=== PATIENT | male | born 1970 | race Caucasian/White ===

== ENCOUNTER 2017-06-10 19:24 | Inpatient (IN) ==
--- NOTE | 2017-06-10 19:52 | Emergency Department Note ---
Disposition Clinical Impression: Cerebrovascular accident Qualifiers: CVA mechanism: unspecified Qualified Code(s): I63.9 - Cerebral infarction, unspecified Disposition: Admitted As Inpatient Condition: Undetermined Referrals: Adelaide Fallon CNP [Primary Care Provider] - Forms: ED Satisfaction Letter Time of Disposition: 21:56 Neuro HPI - General Chief Complaint: ED Neuro Symptoms/Deficit Stated Complaint: weakness in R hand, headache Time Seen by Provider: 06/10/17 19:41 Source: patient Mode of arrival: ambulatory Limitations: no limitations Nursing Notes Reviewed: Yes Vital Signs Reviewed: Yes - History of Present Illness HPI Narrative: 47-year-old male with history of hypertension, hyperlipidemia, diabetes arrives to [facility] emergency department with right upper extremity and numbness and weakness that began roughly 36 hours ago. The patient states he never experienced like this in the past. The patient states that when the symptoms started he began experiencing also right lower extremity weakness that has since resolved. The patient went to work and is continued to his normal routine despite this. The patient's decided to bring the patient in for evaluation today. The patient denies any other complaints at this time. He is resting comfortably in the room with a definitive right upper extremity weakness in his hand. So complaining of a headache. Denies any other complaints. Onset of Symptoms Date: 06/09/17 Onset of Symptoms Time: 08:00 Symptom Onset Unknown: No Location: right arm History of same: No Severity: mild Quality: weakness, numbness Symptoms Improving: No Improves with: none Worsens with: none Context: sudden onset On Anticoagulants: No Associated symptoms: Reports: denies other symptoms - Related Data Home Medications: Home Medications Medication Instructions Recorded Confirmed Gabapentin [Neurontin] 600 mg PO HS 06/10/17 06/10/17 Lisinopril [Zestril] 40 mg PO DAILY 06/10/17 06/10/17 Metoprolol [Lopressor] 25 mg PO BID 06/10/17 06/10/17 Pravastatin Sodium [Pravachol] 40 mg PO HS 06/10/17 06/10/17 hydroCHLOROthiazide 25 mg PO DAILY 06/10/17 06/10/17 [Hydrochlorothiazide] metFORMIN [Glucophage] 1,000 mg PO BIDWM 06/10/17 06/10/17 Allergies/Adverse Reactions: Allergies Allergy/AdvReac Type Severity Reaction Status Date / Time Penicillins Allergy Swelling Verified 12/28/16 20:23 of Lip/Tongue/Throat All systems ED: reviewed and negative except as stated. Constitutional: Reports: weakness. Denies: fever, chills Cardiovascular: Denies: chest pain, dyspnea on exertion Respiratory: Denies: cough, dyspnea, wheezes Gastrointestinal: Denies: abdominal pain, nausea, vomiting Genitourinary: Denies: urgency, dysuria, frequency Musculoskeletal: Denies: back pain, neck pain Neurological: Reports: headache, weakness, numbness. Denies: confusion Psychiatric: Denies: anxiety, depression, suicidal thoughts, homicidal thoughts , auditory hallucinations, visual hallucinations Past Medical History - Past Medical History Attestation: Yes The following information was validated with the patient. Source: patient Medical history: Reports: diabetes, hyperlipidemia, hypertension Surgical history: Reports: non-contributory Psychiatric history: Reports: no psych history - Social History Smoking Status: Current some day smoker Smokeless Tobacco Status: No Alcohol use: Reports: occasionally Drug use: Reports: none Physical Exam - General Limitations: no limitations General appearance: alert, in no apparent distress - Head Head exam: atraumatic, normocephalic, normal inspection - Eye Eye exam: Present: normal appearance, PERRL, EOMI - ENT ENT exam: normal exam, normal oropharynx, mucous membranes moist - Neck Neck exam: Present: normal inspection, full ROM, trachea midline - Chest Chest inspection: Present: normal inspection, symmetric chest wall rise - Respiratory Respiratory exam: Present: normal lung sounds bilaterally - Cardiovascular Cardiovascular exam: Present: regular rate, normal rhythm, normal heart sounds - Abdominal Exam Abdominal exam: Present: soft, Non-Tender. Absent: tenderness, distention, guarding, rebound, rigidity - Extremities Exam Extremities exam: Present: normal inspection, full ROM. 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) Motor strength - LLE: 5/5 Motor strength - RLE: 5/5 Sensory exam upper extremity: light touch: Normal Sensory exam lower extremity: light touch: Normal Course Vital Signs Temperature 98.3 F 06/10/17 19:26 Pulse Rate 90 06/10/17 19:26 Respiratory Rate 16 06/10/17 19:26 Blood Pressure 141/100 06/10/17 19:26 O2 Sat by Pulse Oximetry 95 06/10/17 19:26 Temperature 98.3 F 06/10/17 19:26 Pulse Rate 80 06/10/17 21:03 Respiratory Rate 16 06/10/17 21:03 Blood Pressure 124/78 06/10/17 21:03 O2 Sat by Pulse Oximetry 97 06/10/17 21:03 Oxygen Delivery Oxygen Delivery Room Air Neuro Symptoms/Deficit - MDM Narrative Medical decision making narrative: Patient has workup to demonstrate no acute process here in the emergency department. We will admit the patient for further workup and care with concern for TIA versus CVA. 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 No other deficits noted. Technically the patient has an NIH of 0 due to no drift. Patient to be admitted by Dr. Jackson. - Lab Data Lab results reviewed: Yes I reviewed the patient's lab results. Result diagrams: 06/10/17 20:35 06/10/17 20:35 Lab Results 06/10/17 06/10/17 06/10/17 Range/Units 19:56 20:10 20:12 WBC (4.3-11.1) K/mcL RBC (4.19-5.50) M/mcL Hgb (12.9-16.9) g/dL Hct (37.5-50.1) % MCV (83.0-100.0) fL MCH (28.0-33.3) pg MCHC (31.6-35.5) g/dL RDW (11.5-14.5) % Plt Count (140-400) K/mcL MPV (9.4-12.4) fL Immature Gran % (0-4) % Seg Neutrophils % % Lymphocytes % % Monocytes % % Eosinophils % % Basophils % % Neutrophils # (1.6-8.9) K/mcL Lymphocytes # (0.6-4.6) K/mcL Monocytes # (0.0-1.3) K/mcL Eosinophils # (0.0-0.6) K/mcL Basophils # (0.0-0.2) K/mcL PT (9.4-12.1) Seconds INR APTT (26.0-36.0) Seconds Sodium (136-145) mEq/L Potassium (3.5-4.5) mEq/L Chloride (98-109) mEq/L Carbon Dioxide (19-29) mEq/L BUN (8-26) mg/dL Creatinine (0.72-1.25) mg/dL Est GFR ( Amer) (> 60) Est GFR (Non-Af Amer) (> 60) BUN/Creatinine Ratio (6-26) Glucose (70-99) mg/dL POC Glucose 191 H 184 H (58-89) Calculated Osmolality (280-300) Calcium (8.6-10.8) mg/dL Creatine Kinase (30-200) Units/L Troponin I (0-0.03) ng/mL Urine Color Yellow (Yellow) Urine Clarity Clear (Clear) Urine pH 6.0 (5.0-8.0) pH Units Ur Specific [place] 1.006 L (1.010-1.025) Urine Protein Negative (Neg-Trace) mg/dL Urine Glucose (UA) Normal (Normal) mg/dL Urine Ketones Negative (Negative) mg/dL Urine Blood Negative (Negative) Urine Nitrite Negative (Negative) Urine Bilirubin Negative (Negative) Urine Urobilinogen Normal (Normal) mg/dL Ur Leukocyte Esterase Negative (Negative) Ur Culture Indicated? NO (NO) 06/10/17 06/10/17 06/10/17 Range/Units 20:35 20:35 20:35 WBC 14.5 H (4.3-11.1) K/mcL RBC 5.28 (4.19-5.50) M/mcL Hgb 14.3 (12.9-16.9) g/dL Hct 43.3 (37.5-50.1) % MCV 82.0 L (83.0-100.0) fL MCH 27.1 L (28.0-33.3) pg MCHC 33.0 (31.6-35.5) g/dL RDW 13.0 (11.5-14.5) % Plt Count 344 (140-400) K/mcL MPV 10.3 (9.4-12.4) fL Immature Gran % 0.8 (0-4) % Seg Neutrophils % 58.9 % Lymphocytes % 25.2 % Monocytes % 7.4 % Eosinophils % 6.7 % Basophils % 1.0 % Neutrophils # 8.6 (1.6-8.9) K/mcL Lymphocytes # 3.7 (0.6-4.6) K/mcL Monocytes # 1.1 (0.0-1.3) K/mcL Eosinophils # 1.0 H (0.0-0.6) K/mcL Basophils # 0.1 (0.0-0.2) K/mcL PT (9.4-12.1) Seconds INR APTT (26.0-36.0) Seconds Sodium 136 (136-145) mEq/L Potassium 3.3 L (3.5-4.5) mEq/L Chloride 98 (98-109) mEq/L Carbon Dioxide 24 (19-29) mEq/L BUN 11 (8-26) mg/dL Creatinine 1.03 (0.72-1.25) mg/dL Est GFR ( Amer) > 60 (> 60) Est GFR (Non-Af Amer) > 60 (> 60) BUN/Creatinine Ratio 11 (6-26) Glucose 178 H (70-99) mg/dL POC Glucose (58-89) Calculated Osmolality 286 (280-300) Calcium 9.5 (8.6-10.8) mg/dL Creatine Kinase (30-200) Units/L Troponin I 0.00 (0-0.03) ng/mL Urine Color (Yellow) Urine Clarity (Clear) Urine pH (5.0-8.0) pH Units Ur Specific [place] (1.010-1.025) Urine Protein (Neg-Trace) mg/dL Urine Glucose (UA) (Normal) mg/dL Urine Ketones (Negative) mg/dL Urine Blood (Negative) Urine Nitrite (Negative) Urine Bilirubin (Negative) Urine Urobilinogen (Normal) mg/dL Ur Leukocyte Esterase (Negative) Ur Culture Indicated? (NO) 06/10/17 06/10/17 Range/Units 20:35 20:35 WBC (4.3-11.1) K/mcL RBC (4.19-5.50) M/mcL Hgb (12.9-16.9) g/dL Hct (37.5-50.1) % MCV (83.0-100.0) fL MCH (28.0-33.3) pg MCHC (31.6-35.5) g/dL RDW (11.5-14.5) % Plt Count (140-400) K/mcL MPV (9.4-12.4) fL Immature Gran % (0-4) % Seg Neutrophils % % Lymphocytes % % Monocytes % % Eosinophils % % Basophils % % Neutrophils # (1.6-8.9) K/mcL Lymphocytes # (0.6-4.6) K/mcL Monocytes # (0.0-1.3) K/mcL Eosinophils # (0.0-0.6) K/mcL Basophils # (0.0-0.2) K/mcL PT 11.8 (9.4-12.1) Seconds INR 1.1 APTT 30.6 (26.0-36.0) Seconds Sodium (136-145) mEq/L Potassium (3.5-4.5) mEq/L Chloride (98-109) mEq/L Carbon Dioxide (19-29) mEq/L BUN (8-26) mg/dL Creatinine (0.72-1.25) mg/dL Est GFR ( Amer) (> 60) Est GFR (Non-Af Amer) (> 60) BUN/Creatinine Ratio (6-26) Glucose (70-99) mg/dL POC Glucose (58-89) Calculated Osmolality (280-300) Calcium (8.6-10.8) mg/dL Creatine Kinase 49 (30-200) Units/L Troponin I (0-0.03) ng/mL Urine Color (Yellow) Urine Clarity (Clear) Urine pH (5.0-8.0) pH Units Ur Specific [place] (1.010-1.025) Urine Protein (Neg-Trace) mg/dL Urine Glucose (UA) (Normal) mg/dL Urine Ketones (Negative) mg/dL Urine Blood (Negative) Urine Nitrite (Negative) Urine Bilirubin (Negative) Urine Urobilinogen (Normal) mg/dL Ur Leukocyte Esterase (Negative) Ur Culture Indicated? (NO) - Radiology Data Radiology results reviewed: Yes I reviewed the patient's radiology results. - EKG Data EKG attestation: Yes I reviewed and interpreted this EKG. EKG results narrative: Heart rate 74 bpm. MN interval 176 ms. QTC 39 ms. Normal axis. Normal sinus rhythm. No ST elevation or ST depression noted. EKG similar appearance to EKG from 04/16/2009. NIH Stroke Scale - Level of Consciousness LOC: Alert - LOC Questions LOC Questions: Answers both correctly - LOC Commands LOC Commands: Performs both correctly - Best Gaze Best Gaze: Normal - Visual Visual: No visual loss - Facial Palsy Facial Palsy: Normal - Motor Arms Motor Arm-Left: No drift for 10 seconds Motor Arm-Right: No drift for 10 seconds - Motor Legs Motor Leg-Left: No drift for 5 seconds Motor Leg-Right: No drift for 5 seconds - Limb Ataxia Limb Ataxia: Normal, No Ataxia - Sensory Sensory: Normal - Best Language Best Language: No aphasia - Dysarthria Dysarthria: Normal - Extinction and Inattention Extinction and Inattention: Normal - NIHSS Total Score NIHSS Total Score: 0 TPA Checklist - LKW: 3-4.5 hrs Add. Warnings/Precautions Patient/family understanding: The patient/family members have been counseled and understood the risk, benefit , and alternatives of treatment. Attestation Statement - Attestation Attestation: I examined this patient and my medical decision-making was reviewed with the Resident Physician. I agree with the documented findings, disposition and treatment plan as described except to the extent set forth below. Patient to the ED with a chief complaint of right hand weakness. Onset over 24 hours ago. 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 It was accompanied by weakness in his right leg. The leg weakness resolved but it persisted in his hand. Now has a mild headache. Awake and alert and neurologically intact. 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 Plan. CT head unremarkable. He will be admitted for further stroke workup.
[2017-06-10 20:23] LABS: Bilirubin,Urine Negative (Negative); Blood,Urine Negative (Negative); Clarity,Urine Clear (Clear); Color,Urine Yellow (Yellow); Glucose,Urine (UA) Normal (Normal); Ketones,Urine Negative (Negative); Leukocyte Esterase,Urine Negative (Negative); Nitrite,Urine Negative (Negative); Protein,Urine Negative (Neg-Trace); Specific Gravity,Urine 1.006 (1.010-1.025); Urobilinogen,Urine Normal (Normal)
[2017-06-10 20:44] LABS: Basophils # 0.1 K/mcL (0.0-0.2); Eosinophils % 6.7 %; Hematocrit 43.3 % (37.5-50.1); Hemoglobin 14.3 g/dL (12.9-16.9); Immature Granulocytes % 0.8 % (0-4); Lymphocytes # 3.7 K/mcL (0.6-4.6); Lymphocytes % 25.2 %; Mean Corpuscular Hemoglobin 27.1 pg (28.0-33.3); Mean Platelet Volume 10.3 fL (9.4-12.4); Monocytes # 1.1 K/mcL (0.0-1.3); Monocytes % 7.4 %; Neutrophils # 8.6 K/mcL (1.6-8.9); Platelet Count 344 K/mcL (140-400); Red Blood Count 5.28 M/mcL (4.19-5.50); Segmented Neutrophils % 58.9 %
[2017-06-10 20:49] LABS: INR 1.1; Prothrombin Time 11.8 Seconds (9.4-12.1)
[2017-06-10 20:51] LABS: Activated Partial Thrombo Time 30.6 Seconds (26.0-36.0)
[2017-06-10 20:57] LABS: BUN/Creatinine Ratio 11 (6-26); Blood Urea Nitrogen 11 mg/dL (8-26); Calcium 9.5 mg/dL (8.6-10.8); Carbon Dioxide 24 mEq/L (19-29); Chloride 98 mEq/L (98-109); Glucose 178 mg/dL (70-99); Osmolality,Calculated 286 (280-300); Potassium 3.3 mEq/L (3.5-4.5); Sodium 136 mEq/L (136-145); eGFR For African Americans > 60 (> 60); eGFR For Non-African Americans > 60 (> 60)
[2017-06-10] MEDS ORDERED: *HR* Promethazine 25 MG/ML VIAL IVP PRN (22:52)
[2017-06-10] MEDS ORDERED: Ondansetron 4 MG/2 ML VIAL IVP PRN (22:52)
[2017-06-10] MEDS ORDERED: *HR* Morphine 2 MG/ML SYRINGE IVP PRN (22:52)
[2017-06-10] MEDS ORDERED: *HR* HYDROcodone/Acet 5/325 mg TABLET PO PRN (22:52)
[2017-06-10] MEDS ORDERED: Acetaminophen 325 MG TABLET PO PRN (22:52)
[2017-06-10] MEDS ORDERED: Naloxone 0.4 MG/ML INJ IVP PRN (22:52)
--- NOTE | 2017-06-10 23:03 | Internal Med History&Physical ---
Date of Encounter: 06/10/17 Time of Encounter: 10:15 Assessment and Plan (1) Cerebrovascular accident Current visit: Yes Status: Acute He does have noticeble weakness in Rt UE Not a cnadidate for tPA due to prolonge duration of symptoms will placed the pt into tele for observation reviewed CT of head - no acute ICH EKG - NSR Will cont neuro checks Q4hr Since pt is ASA naive, will start him on ASA 81mg Cont Pravastatin home meds check FLP in AM Check MRI of brain, Carotid doppler and 2 D Echo in AM Will consult neuro in AM PT / OT eval ordered If MRI of Brain is negative - he may need further work up for Cervical spinal stenosis Qualifiers: CVA mechanism: unspecified Qualified Code(s): I63.9 - Cerebral infarction, unspecified (2) Right arm weakness Current visit: Yes Status: Acute PT / OT eval ordered If MRI of Brain is negative - he may need further work up for Cervical spinal stenosis (3) Essential hypertension Current visit: Yes Status: Acute Resumed home meds (4) DM2 (diabetes mellitus, type 2) Current visit: Yes Status: Acute resumed home meds check hbA1C in AM Qualifiers: Qualified Code(s): E11.9 - Type 2 diabetes mellitus without complications (5) HLD (hyperlipidemia) Current visit: Yes Status: Acute on statin checl FLP in AM Qualifiers: Qualified Code(s): E78.5 - Hyperlipidemia, unspecified Internal Medicine - H&P: HPI Chief complaint: Rt arm weakness Admitted From: Emergency Dept Plans for Post Hospital Care: Home History of present illness: Mr. Rai is a 47 year old male with known DM2, HTN, HLD pt presented to [facility] emergency department with right upper extremity numbness and weakness that began roughly 36 hours ago. The patient states he never experienced like this in the past. The patient states that when the symptoms started he began experiencing also right lower extremity weakness that has since resolved. The patient went to work and is continued to his normal routine despite this. The patient's decided to bring the patient in for evaluation today. 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 He did complained of headache y/d. Denies any other complaints. he denied any neck pain. Past Med Surg Social Fam HX - Past Medical History Medical history: diabetes, hyperlipidemia, hypertension Psychiatric history: no psych history - Past Surgical History Surgical History: non-contributory - Social History Smoking Status: Current some day smoker Smokeless Tobacco Status: No Alcohol use: occasionally Drug use: none - Additional Family History Additional family history: Reviewed and noncontributory to current problem Internal Medicine - H&P: Meds Gabapentin [Neurontin] 600 mg PO HS 06/10/17 [History] Lisinopril [Zestril] 40 mg PO DAILY 06/10/17 [History] Metoprolol [Lopressor] 25 mg PO BID 06/10/17 [History] Pravastatin Sodium [Pravachol] 40 mg PO HS 06/10/17 [History] hydroCHLOROthiazide [Hydrochlorothiazide] 25 mg PO DAILY 06/10/17 [History] metFORMIN [Glucophage] 1,000 mg PO BIDWM 06/10/17 [History] 3 Allergy/AdvReac Type Severity Reaction Status Date / Time Penicillins Allergy Swelling Verified 12/28/16 20:23 of Lip/Tongue/Throat All Systems PM: A 10-system review of systems was performed and is negative for pertinent findings except as documented above in the HPI. Review of systems: All the systems are reviewed everything is benign except the systems and symptoms I mentioned in the history of present illness - Constitutional Vitals: Temp Pulse Resp BP Pulse Ox 98.2 F 80 16 116/74 97 06/10/17 22:42 06/10/17 21:03 06/10/17 22:42 06/10/17 22:42 06/10/17 21:03 General appearance: Present: A&O X 3, no acute distress, answers questions appropriately - Head Head exam: Present: atraumatic, normal inspection - Respiratory Respiratory exam: Present: decreased breath sounds. Absent: rales, respiratory distress, rhonchi, wheezes - Cardiovascular Cardiovascular exam: Present: RRR, +S1, +S2. Absent: systolic murmur - GI/Abdominal GI/Abdominal exam: Present: normal bowel sounds, soft. Absent: distended, rebound, rigid, tenderness - Extremities Exam Extremities exam: Absent: calf tenderness, pedal edema, tenderness - Neurological Exam Neurological exam: Present: alert, CN II-XII intact, motor sensory deficit, normal gait, oriented X3, reflexes normal. Absent: strengths equal and symetr throughout, pronater drift, facial droop, speech deficit Additional comments: 4/5 strength in Rt UE.. comparable weakness noticed in Rt arm - Psychiatric Psychiatric exam: Present: normal affect, normal mood Internal Med - H&P Results - Labs CBC & Chem 7: 06/10/17 20:35 06/10/17 20:35
[2017-06-11] MEDS: Aspirin Enteric Coated 81 MG Tablet PO SCH ×2 (01:17→08:14)
[2017-06-11 05:04] LABS: Basophils # 0.2 K/mcL (0.0-0.2); Basophils % 1.2 %; Eosinophils # 0.9 K/mcL (0.0-0.6); Eosinophils % 7.5 %; Hematocrit 41.8 % (37.5-50.1); Immature Granulocytes % 0.8 % (0-4); Lymphocytes # 3.2 K/mcL (0.6-4.6); Lymphocytes % 25.3 %; Mean Corpuscular HGB Conc 33.5 g/dL (31.6-35.5); Mean Corpuscular Hemoglobin 27.9 pg (28.0-33.3); Mean Corpuscular Volume 83.4 fL (83.0-100.0); Mean Platelet Volume 10.6 fL (9.4-12.4); Monocytes # 0.9 K/mcL (0.0-1.3); Monocytes % 7.4 %; Neutrophils # 7.2 K/mcL (1.6-8.9); Platelet Count 297 K/mcL (140-400); Red Blood Count 5.01 M/mcL (4.19-5.50); Red Cell Distribution Width 13.3 % (11.5-14.5); Segmented Neutrophils % 57.8 %
[2017-06-11 05:13] LABS: Hemoglobin A1C 8.3 %
[2017-06-11 05:20] LABS: Chol/HDL Ratio 5.2 (0-4.9)
[2017-06-11] MEDS ORDERED: *HR* Metformin 500 MG TABLET PO SCH (08:00)
[2017-06-11] MEDS: Lisinopril 20 MG TABLET PO SCH (08:13)
[2017-06-11] MEDS: hydroCHLOROthiazide 25 MG TABLET PO SCH (08:13)
[2017-06-11] MEDS ORDERED: Perflutren Lipid Microsphere 1.3 ML in 0.9 % Sodium Chloride 8.7 ML IVP ONE (09:28)
[2017-06-11] MEDS ORDERED: D5% in Water 1,000 ML IVC PRN (12:13)
[2017-06-11] MEDS ORDERED: *HR* Dextrose 50 % in Water (Syg) 50 ML SYRINGE IVP PRN (12:13)
[2017-06-11] MEDS ORDERED: Dextrose Gel 15 GM PO PRN ×2 (12:13)
--- NOTE | 2017-06-11 12:32 | Internal Med Progress Note ---
Date of Encounter: 06/11/17 Time of Encounter: 11:52 - Assessment and plan (1) Right arm weakness Current Visit: Yes Status: Acute Assessment and plan: Hilario Rai is a 47 y/o male with PMH HTN, diabetes, and hyperlipidemia who presented to [facility] on 06/10/2017 with complaints of right arm weakness. He was placed in observation status for CVA rule out. 1. Right arm weakness: that started 2-3 days prior to presentation. Not a Tpa candidate due to symptom onset. ASA started on arrival. Head CT negative. TTE with evidence of PFO. Brain MRI and carotids pending. Cont ASA, statin 2. PFO: 06/11/2017 TTE with evidence of interatrial PFO. Await brain MRI result. If positive for stroke then consult CTS if no stroke then consult Cardiology . 3. Hypertension: per hx. BP controlled. Cont home PATRICIA medication. Monitor BP and titrate PRN 4. Diabetes: per hx. Uncontrolled. Hgb A1c 8.3. Holding home metformin. SSI. Monitor blood sugar and titrate PRN 5. Hyperlipidemia: per hx. LDL 50, cont home statin 6. DVT prophylaxis: heparin (2) Essential hypertension Current Visit: Yes Status: Acute (3) DM2 (diabetes mellitus, type 2) Current Visit: Yes Status: Acute Qualifiers: Qualified Code(s): E11.9 - Type 2 diabetes mellitus without complications (4) HLD (hyperlipidemia) Current Visit: Yes Status: Acute Qualifiers: Qualified Code(s): E78.5 - Hyperlipidemia, unspecified - Subjective Interval history: Seen and examined at bedside, he is new to me. Information obtained from chart review and patient report. Patient says he feels about the same, still with right arm weakness. No numbness or tingling. No blurred or double vision. No chest pain or shortness of breath. - Constitutional Vitals: Temp Pulse Resp BP Pulse Ox 98.1 F 69 20 129/77 94 06/11/17 11:47 06/11/17 11:47 06/11/17 07:29 06/11/17 11:47 06/11/17 11:47 General appearance: Present: A&O X 3, no acute distress, answers questions appropriately - Head Head exam: Present: atraumatic, normocephalic - Eye Eye exam: Present: PERRL, conjuntiva pink, sclera anicteric Pupils: Present: PERRL - Neck Neck exam general surgery: Present: supple, trachea midline. Absent: lymphadenopathy - Respiratory Respiratory exam: Present: CTAB. Absent: accessory muscle use, rales, rhonchi, wheezes - Cardiovascular Cardiovascular exam: Present: RRR, +S1, +S2. Absent: diastolic murmur, gallop, rubs, systolic murmur - GI/Abdominal GI/Abdominal exam: Present: normal bowel sounds, soft, no peritoneal signs. Absent: distended, tenderness - Extremities Exam Extremities exam: Present: warm, radial pulses palpable and symmetrical. Absent : calf tenderness, cyanotic, pedal edema - Neurological Exam Neurological exam: Present: CN II-XII intact, oriented X3, no focal deficits. Absent: pronater drift, facial droop, speech deficit Additional comments: right arm weakness - Skin Skin exam: Present: dry, intact Internal Medicine: Result - Labs CBC & Chem 7: 06/11/17 04:21 06/10/17 20:35 Labs: Short CBC 06/11/17 Range/Units 04:21 WBC 12.5 H (4.3-11.1) K/mcL Hgb 14.0 (12.9-16.9) g/dL Hct 41.8 (37.5-50.1) % Plt Count 297 (140-400) K/mcL Neutrophils # 7.2 (1.6-8.9) K/mcL Cardiac Enzymes 06/11/17 Range/Units 04:21 Troponin I 0.00 (0-0.03) ng/mL - ABG Interpretation ABG results: PT/INR, D-dimer PT 11.8 Seconds (9.4-12.1) 06/10/17 20:35 - Impressions Impressions Echocardiogram 06/11/17 22:58 Impressions: Normal LV systolic function, LVEF 65%. Normal left ventricular diastolic function. Normal right ventricular size and function. No evidence of pulmonary hypertension. No significant valvular dysfunction. There is a patent foramen ovale (PFO) detected by agitated saline contrast. Left Ventricular Wall Motion: Rest Echo Findings All wall segments showed normal motion. Findings: Study Quality * Technically adequate exam. ECG Findings * Normal sinus rhythm. Left Ventricle * Normal LV systolic function, LVEF 65%. * Normal LV chamber size and wall thickness. * Normal left ventricular diastolic function. Right Ventricle * Normal right ventricular size and function. Left Atrium * Normal left atrial size. Right Atrium * Normal right atrial size. Interatrial Septum * There is a patent foramen ovale (PFO) detected by agitated saline contrast. Aorta * Normally sized aortic root. Pericardium * There is no pericardial effusion present. IVC * The IVC is not dilated. Aortic Valve * Trileaflet aortic valve. * No aortic stenosis. * No aortic regurgitation. Mitral Valve * Normal mitral valve structure. * No mitral stenosis. * Trace mitral regurgitation. Tricuspid Valve * Normal tricuspid valve structure. * No tricuspid stenosis. * Trace tricuspid regurgitation. * No evidence of pulmonary hypertension. Pulmonic Valve * Pulmonic valve not well visualized. * No pulmonic stenosis. * No pulmonic regurgitation. Consult Discharge Plan - Plan Referrals: Adelaide Fallon, [facility] [Primary Care Provider] -
[2017-06-11] MEDS: *HR* Heparin 5,000 UNIT/ML VIAL SQ SCH ×2 (13:39→21:40)
--- NOTE | 2017-06-11 15:16 | Carotid Imaging Report ---
Carotid Duplex Patient Name:Hilario Rai Order Number:[id number] Procedure Date:06/11/2017 Date:1970Age:47 yrs Gender:Male Location:[facility] Room #: 3B23 Online Trader:Karin Hernandes Referring MD:Tim William MD Reading MD:Hilario Stahl MD Risk Factors Yes/No Hypertension Yes Diabetes Yes Hypercholesterolemia Yes Smoking Current cigars Impressions: The bilateral carotid arteries are normal throughout. Recommendations: After imaging the patient returned to their room. Findings Carotid Duplex: Right: The right proximal common carotid artery has a PSV of 101 cm/s and a EDV of 25 cm/s. The right mid common carotid artery has a PSV of 80 cm/s and a EDV of 21 cm/s. The right distal common carotid artery has a PSV of 92 cm/s and a EDV of 27 cm/s. The right bifurcation has a PSV of 78 cm/s and a EDV of 26 cm/s. The right proximal internal carotid artery has a PSV of 88 cm/s and a EDV of 33 cm/s. The right mid internal carotid artery has a PSV of 86 cm/s and a EDV of 38 cm/s. The right distal internal carotid artery has a PSV of 71 cm/s and a EDV of 30 cm/s. The right eca has a PSV of 111 cm/s and a EDV of 15 cm/s. The right vertebral artery has a PSV of 41 cm/s and a EDV of 18 cm/s. Left: The left proximal common carotid artery has a PSV of 83 cm/s and a EDV of 19 cm/s. The left mid common carotid artery has a PSV of 109 cm/s and a EDV of 30 cm/s. The left distal common carotid artery has a PSV of 82 cm/s and a EDV of 30 cm/s. The left bifurcation has a PSV of 78 cm/s and a EDV of 24 cm/s. The left proximal internal carotid artery has a PSV of 72 cm/s and a EDV of 36 cm/s. The left mid internal carotid artery has a PSV of 74 cm/s and a EDV of 29 cm/s. The left distal internal carotid artery has a PSV of 52 cm/s and a EDV of 23 cm/s. The left eca has a PSV of 88 cm/s and a EDV of 12 cm/s. The left vertebral artery has a PSV of 46 cm/s and a EDV of 17 cm/s. Carotid Results Right PSV EDV Assessment Proximal CCA 101 25 Normal Mid CCA 80 21 Normal Distal CCA 92 27 Normal Bifurcation 78 26 Normal Proximal ICA 88 33 Normal Mid ICA 86 38 Normal Distal ICA 71 30 Normal ECA 111 15 Normal Vertebral Artery 41 18 Normal Left PSV EDV Assessment Proximal CCA 83 19 Normal Mid CCA 109 30 Normal Distal CCA 82 30 Normal Bifurcation 78 24 Normal Proximal ICA 72 36 Normal Mid ICA 74 29 Normal Distal ICA 52 23 Normal ECA 88 12 Normal Vertebral Artery 46 17 Normal Ratio's Right ICA/CCA Ratio: 1.10 ICA/CCA Values: 86/80 Left ICA/CCA Ratio: 0.70 ICA/CCA Values: 74/109 Updated by Hilario Stahl MD on 06/11/2017 3:10:30 PM electronically signed on 06/11/2017 3:10:59 PM with status of Final
[2017-06-11] MEDS: Insulin LISPRO 300 UNITS/3 ML VIAL SQ SCH ×2 (18:11→21:41)
--- NOTE | 2017-06-11 18:17 | Neurology - Consult Note ---
Date of Encounter: 06/11/17 Time of Encounter: 18:12 Assessment and Plan (1) Cerebrovascular accident Current Visit: Yes Status: Acute Involving the left frontal cortex and subcortial region concerning for emboli event. Does have other multiple risk factors including HTN, DM and JESU, and obesity. Agree with Aspirin 81mg daily. Statin therapy. Will recommend HOLLIE to look for source of emboli other than through PFO since this appears to be an embolic stroke in young. Has evidence of PFO. Since this is his first incidence of stroke will likely keep him on antiplatelet therapy. Would need cardiology consult for evaluation and treatment PFO. Qualifiers: CVA mechanism: embolism Precerebral and cerebral artery: middle cerebral artery Laterality of affected vessel: left Qualified Code(s): I63.412 - Cerebral infarction due to embolism of left middle cerebral artery History of Present Illness Chief complaint: right arm weakness HPI: Mr. Rai is a 47 year old male with PMH significant for HTN, DM, Obesity, hyperlipidemia, JESU on CPAP who developed acute onset of right arm weakness, about 2 days ago. He waited 36 hours before going to ER to be evaluated since his weakness was not getting better. Denies speech difficulty. No headaches. MRI of brain showed MR/MR head/brain : Acute lacunar infarct within the high left frontal lobe. I reviewed the images personally, it appears that the acute infarct was located at the left frontal cortex and subcortical region, concerning for embolic etiology. Patient's right arm weakness improved. Denies history of atrial fibrillation. Does have HTN, DM, obesity and JESU and has been compliant with CPAP therapy. Patient is on aspirin 81mg daily. Carotid artery duplex study is read as normal. TTE showed normal LVEF, no regional wall motion abnormalities. positive for PFO. No significant valcular disease. Past Med Surg Social Fam HX - Past Medical History Medical history: diabetes, hyperlipidemia, hypertension Psychiatric history: no psych history - Past Surgical History Surgical History: non-contributory - Social History Smoking Status: Current some day smoker Smokeless Tobacco Status: No Alcohol use: occasionally Drug use: none - Family History Mother Hx Family Cardiac Disorders: Yes (HTN) Medications and Allergies Gabapentin [Neurontin] 600 mg PO HS 06/10/17 [History] Lisinopril [Zestril] 40 mg PO DAILY 06/10/17 [History] Metoprolol [Lopressor] 25 mg PO BID 06/10/17 [History] Pravastatin Sodium [Pravachol] 40 mg PO HS 06/10/17 [History] hydroCHLOROthiazide [Hydrochlorothiazide] 25 mg PO DAILY 06/10/17 [History] metFORMIN [Glucophage] 1,000 mg PO BIDWM 06/10/17 [History] 3 Allergy/AdvReac Type Severity Reaction Status Date / Time Penicillins Allergy Swelling Verified 12/28/16 20:23 of Lip/Tongue/Throat All Systems: A 10-system review of systems was performed and is negative for pertinent findings except as documented above in the HPI. Physical Examination - Vital Signs Vital Signs: Initial Vital Signs Temp Pulse Resp BP Pulse Ox 98.3 F 90 16 141/100 95 06/10/17 19:26 06/10/17 19:26 06/10/17 19:26 06/10/17 19:26 06/10/17 19:26 - Constitutional General appearance: comfortable - Neurologic Detailed motor examination: full strength in all major muscle groups Motor examination - right side: 5/5: deltoids, biceps, triceps, wrist flexion, wrist extension, respooler, hip flexors, tibialis Anterior, quadriceps, toe extension (EHL), plantarflexion Motor examination - left side: 5/5: deltoids, biceps, triceps, wrist flexion, wrist extension, hip flexors, respooler, quadriceps, tibialis Anterior, toe extension (EHL), plantarflexion Mental Status Examination: awake, alert, oriented to person, oriented to place, oriented to time, follows commands appropriately, answers questions appropriately, no agnosia, no aphasia, no aproxia Cranial nerve examination: PERRL, EOMI, visual parsons intact, corneal reflexes brisk symmetrically, sensory to face intact, mastication intact, no facial asymmetry is present, no dysarthria, hearing is intact symmetrically, soft palate elevates bilaterally upon phonation, gag reflex intact, flexes SCM and trapezius muscles symmetrically with full power, tongue protrudes midline, no atrophy or facial fasiculations present Cerebellar examination: no dysmetria, performs finger to nose and heel to kemp symmetrically without ataxia, no gait ataxia, no truncal ataxia, no difficulty with rapid alternating movements Results - Laboratory Findings CBC and BMP: 06/11/17 04:21 06/10/17 20:35 Abnormal lab findings: Abnormal lab results WBC 12.5 K/mcL (4.3-11.1) H 06/11/17 04:21 MCH 27.9 pg (28.0-33.3) L 06/11/17 04:21 Eosinophils # 0.9 K/mcL (0.0-0.6) H 06/11/17 04:21 Potassium 3.3 mEq/L (3.5-4.5) L 06/10/17 20:35 Glucose 178 mg/dL (70-99) H 06/10/17 20:35 POC Glucose 217 (58-89) H 06/11/17 15:38 Hemoglobin A1c 8.3 % (-5.6) H 06/11/17 04:21 Triglycerides 235 mg/dL (< 150) H 06/11/17 04:21 VLDL Cholesterol, Calc 47 mg/dL (< 31) H 06/11/17 04:21 HDL Cholesterol 23 mg/dL (40-59) L 06/11/17 04:21 Cholesterol/HDL Ratio 5.2 (0-4.9) H 06/11/17 04:21 Ur Specific [place] 1.006 (1.010-1.025) L 06/10/17 19:56 Consult Discharge Plan - Plan Referrals: Adelaide Fallon, SAFIA [Primary Care Provider] -
[2017-06-11] MEDS: Gabapentin 300 MG CAPSULE PO SCH (21:40)
[2017-06-12 02:15] LABS: Hematocrit 43.7 % (37.5-50.1); Hemoglobin 13.9 g/dL (12.9-16.9); Mean Corpuscular HGB Conc 31.8 g/dL (31.6-35.5); Mean Corpuscular Hemoglobin 26.8 pg (28.0-33.3); Mean Corpuscular Volume 84.4 fL (83.0-100.0); Mean Platelet Volume 10.3 fL (9.4-12.4); Platelet Count 312 K/mcL (140-400); Red Blood Count 5.18 M/mcL (4.19-5.50)
[2017-06-12 02:38] LABS: Alanine Aminotransferase 20 Units/L (0-55); Albumin 3.2 g/dL (3.5-5.0); Albumin/Globulin Ratio 0.9 (1.1-2.2); Alkaline Phosphatase 95 Units/L (38-126); Aspartate Amino Transferase 19 Units/L (5-34); BUN/Creatinine Ratio 13 (6-26); Bilirubin,Total 0.4 mg/dL (0.2-1.2); Blood Urea Nitrogen 11 mg/dL (8-26); Calcium 9.1 mg/dL (8.6-10.8); Carbon Dioxide 29 mEq/L (19-29); Chloride 102 mEq/L (98-109); Globulin 3.5 g/dL (2.4-3.5); Glucose 165 mg/dL (70-99); Osmolality,Calculated 295 (280-300); Potassium 3.6 mEq/L (3.5-4.5); Sodium 141 mEq/L (136-145); Total Protein 6.7 g/dL (6.0-8.3); eGFR For African Americans > 60 (> 60); eGFR For Non-African Americans > 60 (> 60)
[2017-06-12] MEDS: *HR* Heparin 5,000 UNIT/ML VIAL SQ SCH ×3 (05:16→20:16)
--- NOTE | 2017-06-12 08:30 | Electrocardiograph Report ---
[place] [id number] Test Date: 2017-06-10 Pat Name: Hilario Rai Department: 103 Room: 3B23 Gender: M Electorate Officer: : 1970 Requested By: Karel Mahmood Order Number: [id number] Reading MD: Ronnie Akbar MD Measurements Intervals [place] Rate: 74 P: 30 DE: 176 QRS: -20 QRSD: 92 T: -6 QT: 362 QTc: 389 Interpretive Statements SINUS RHYTHM Electronically Signed On 06-12-2017 8:29:01 EDT by Ronnie Akbar MD
[2017-06-12] MEDS: Insulin LISPRO 300 UNITS/3 ML VIAL SQ SCH ×4 (08:44→20:18)
[2017-06-12] MEDS: hydroCHLOROthiazide 25 MG TABLET PO SCH (08:44)
[2017-06-12] MEDS: Aspirin Enteric Coated 81 MG Tablet PO SCH (08:44)
[2017-06-12] MEDS: Lisinopril 20 MG TABLET PO SCH (08:44)
[2017-06-12] MEDS ORDERED: *HR* Midazolam HCl 5 MG/5 ML VIAL IVP ONE (10:58)
[2017-06-12] MEDS ORDERED: *HR* FentaNYL (PF) 100 MCG/2 ML VIAL ONE (10:58)
--- NOTE | 2017-06-12 11:57 | Event Note ---
Date of Encounter: 06/12/17 Time of Encounter: 11:53 Procedure: HOLLIE Indication: Cardiac source of emboli. Anesthesia: Versed and Fentanyl. Complications: None. Findings: 1. No cardiac source of emboli identified. 2. Normal left atrial appendage. No thrombus. 3. No significant VHD. 4. There appeared to be a plaque in the aorta at the level of the aortic arch. It was not well defined by ultrasound. Recommend dedicated imaging, i.e. CT scan, to further evaluate. This is a potential source of CVA. Thanks, Crow Baez DO, FACC
--- NOTE | 2017-06-12 14:33 | Internal Med Progress Note ---
Date of Encounter: 06/12/17 Time of Encounter: 14:31 - Assessment and plan (1) Right arm weakness Current Visit: Yes Status: Acute Assessment and plan: Hilario Rai is a 47 y/o male with PMH HTN, diabetes, and hyperlipidemia who presented to [facility] on 06/10/2017 with complaints of right arm weakness. He was placed in observation status for CVA rule out. 1. Acute CVA: Presented with right arm weakness for 2-3 days prior to admission. Not a TPA candidate due to symptom onset. ASA given on arrival. Head CT negative Brain MRI with acute lacunar infarct within the high left frontal lobe. TTE with evidence of PFO. Bilateral carotid Dopplers normal. HOLLIE with no cardiac source of emboli identified, normal L AA, no thrombus. There was aortic arch plaque noted that was not well defined by ultrasound. CTA chest pending for further characterization. Cont ASA, statin. Neurology following. 2. PFO: 06/11/2017 TTE with evidence of interatrial PFO. Discussed with neurology and will continue ASA for now. Patient can follow up outpatient to see if PFO closure is recommended. 3. Hypertension: per hx. BP controlled. Cont home BP medication. Monitor BP and titrate PRN 4. Diabetes: per hx. Uncontrolled. Hgb A1c 8.3. Holding home metformin. SSI. Monitor blood sugar and titrate PRN 5. Hyperlipidemia: per hx. LDL 50, cont home statin 6. DVT prophylaxis: heparin (2) Essential hypertension Current Visit: Yes Status: Acute (3) DM2 (diabetes mellitus, type 2) Current Visit: Yes Status: Acute Qualifiers: Diabetes mellitus complication status: without complication Diabetes mellitus correction insulin use: without correction use Qualified Code(s): E11.9 - Type 2 diabetes mellitus without complications (4) HLD (hyperlipidemia) Current Visit: Yes Status: Acute Qualifiers: Hyperlipidemia type: pure hypercholesterolemia Qualified Code(s): E78.00 - Pure hypercholesterolemia, unspecified; E78.0 - Pure hypercholesterolemia - Subjective Interval history: Seen and examined - Constitutional Vitals: Temp Pulse Resp BP Pulse Ox 97.7 F 77 18 135/94 94 06/12/17 11:19 06/12/17 11:19 06/12/17 11:19 06/12/17 11:19 06/12/17 11:09 General appearance: Present: A&O X 3, no acute distress, answers questions appropriately Internal Medicine: Result - Labs CBC & Chem 7: 06/12/17 02:00 06/12/17 02:00 - ABG Interpretation ABG results: PT/INR, D-dimer PT 11.8 Seconds (9.4-12.1) 06/10/17 20:35 Consult Discharge Plan - Plan Referrals: Adelaide Fallon, SAFIA [Primary Care Provider] -
--- NOTE | 2017-06-12 15:01 | Neurology Progress Note ---
Date of Encounter: 06/12/17 Time of Encounter: 14:59 Assessment and Plan (1) Cerebrovascular accident Current Visit: Yes Status: Acute 47 year old young man with HTN, DM, obesity, JESU and PFO who developed acute left frontal lobe infarct, embolic or thromboembolic etiology. Stroke work up completed with normal LVEF, no atrial appendage thrombus but questionable aortic arch plaque. Await CTA of chest result. Will keep him on Aspirin 325mg daily for secondary stroke prevention. risk factor modification. Continue statin therapy. Continue CPAP therapy. Weight loss encouraged. Follow up in neurology 2-3 weeks after discharge Qualifiers: CVA mechanism: embolism Precerebral and cerebral artery: middle cerebral artery Laterality of affected vessel: left Qualified Code(s): I63.412 - Cerebral infarction due to embolism of left middle cerebral artery Subjective Principal diagnosis: CVA Interval history: Patient seen and examined. Patient completed HOLLIE, and results were discussed with Dr. Crow Baez. HOLLIE showed no significant cardiac pathology or source of emboli, but suspected plaque at the aortic arch therefore a CTA of chest with contrast was ordered. Objective - Constitutional Vitals: Temp Pulse Resp BP Pulse Ox 97.7 F 77 18 135/94 94 06/12/17 11:19 06/12/17 11:19 06/12/17 11:19 06/12/17 11:19 06/12/17 11:09 - Neurological Exam Motor Examination: Present: full strength in all major muscle groups Motor examination - left side: 5/5: deltoids, biceps, triceps, wrist flexion, wrist extension, hip flexors, information management officer, quadriceps, tibialis Anterior, toe extension (EHL), plantarflexion Mental Status Examination: Present: awake, alert, oriented to person, oriented to place, oriented to time, follows commands appropriately, answers questions appropriately, no agnosia, no aphasia, no aproxia Cranial nerve examination: Present: PERRL, EOMI, visual parsons intact, corneal reflexes brisk symmetrically, sensory to face intact, mastication intact, no facial asymmetry is present, no dysarthria, hearing is intact symmetrically, soft palate elevates bilaterally upon phonation, gag reflex intact, flexes SCM and trapezius muscles symmetrically with full power, tongue protrudes midline, no atrophy or facial fasiculations present Cerebellar examination: Present: no dysmetria, performs finger to nose and heel to kemp symmetrically without ataxia, no gait ataxia, no truncal ataxia, no difficulty with rapid alternating movements Results - Laboratory Findings CBC and BMP: 06/12/17 02:00 06/12/17 02:00 Abnormal lab findings: Abnormal lab results WBC 12.1 K/mcL (4.3-11.1) H 06/12/17 02:00 MCH 26.8 pg (28.0-33.3) L 06/12/17 02:00 Eosinophils # 0.9 K/mcL (0.0-0.6) H 06/11/17 04:21 Glucose 165 mg/dL (70-99) H 06/12/17 02:00 POC Glucose 246 (58-89) H 06/11/17 20:08 Hemoglobin A1c 8.3 % (-5.6) H 06/11/17 04:21 Albumin 3.2 g/dL (3.5-5.0) L 06/12/17 02:00 Albumin/Globulin Ratio 0.9 (1.1-2.2) L 06/12/17 02:00 Triglycerides 235 mg/dL (< 150) H 06/11/17 04:21 VLDL Cholesterol, Calc 47 mg/dL (< 31) H 06/11/17 04:21 HDL Cholesterol 23 mg/dL (40-59) L 06/11/17 04:21 Cholesterol/HDL Ratio 5.2 (0-4.9) H 06/11/17 04:21 Ur Specific [place] 1.006 (1.010-1.025) L 06/10/17 19:56 Consult Discharge Plan - Plan Referrals: Adelaide Fallon, SAFIA [Primary Care Provider] -
[2017-06-12] MEDS: Gabapentin 300 MG CAPSULE PO SCH (20:16)
[2017-06-13 04:47] LABS: Hematocrit 42.1 % (37.5-50.1); Hemoglobin 13.9 g/dL (12.9-16.9); Mean Corpuscular Hemoglobin 27.7 pg (28.0-33.3); Mean Corpuscular Volume 83.9 fL (83.0-100.0); Mean Platelet Volume 10.3 fL (9.4-12.4); Platelet Count 293 K/mcL (140-400); Red Blood Count 5.02 M/mcL (4.19-5.50)
[2017-06-13 05:04] LABS: Alanine Aminotransferase 19 Units/L (0-55); Albumin 3.3 g/dL (3.5-5.0); Albumin/Globulin Ratio 0.9 (1.1-2.2); Alkaline Phosphatase 104 Units/L (38-126); Aspartate Amino Transferase 19 Units/L (5-34); BUN/Creatinine Ratio 13 (6-26); Bilirubin,Total 0.4 mg/dL (0.2-1.2); Blood Urea Nitrogen 13 mg/dL (8-26); Calcium 9.3 mg/dL (8.6-10.8); Carbon Dioxide 29 mEq/L (19-29); Chloride 102 mEq/L (98-109); Globulin 3.5 g/dL (2.4-3.5); Glucose 201 mg/dL (70-99); Osmolality,Calculated 292 (280-300); Potassium 3.9 mEq/L (3.5-4.5); Sodium 138 mEq/L (136-145); Total Protein 6.8 g/dL (6.0-8.3); eGFR For African Americans > 60 (> 60); eGFR For Non-African Americans > 60 (> 60)
[2017-06-13] MEDS: *HR* Heparin 5,000 UNIT/ML VIAL SQ SCH (05:39)
[2017-06-13 07:17] VITALS: BP 120/79
[2017-06-13] MEDS: Insulin LISPRO 300 UNITS/3 ML VIAL SQ SCH (07:59)
[2017-06-13] MEDS: Lisinopril 20 MG TABLET PO SCH (07:59)
[2017-06-13] MEDS: hydroCHLOROthiazide 25 MG TABLET PO SCH (07:59)
--- NOTE | 2017-06-13 08:52 | Discharge Summary ---
Date of Encounter: 06/13/17 Time of Encounter: 08:25 - Discharge Diagnosis (1) Right arm weakness Priority: Primary Status: Acute Comments: Hilario Rai is a 47 y/o male with PMH HTN, diabetes, and hyperlipidemia who presented to [facility] on 06/10/2017 with complaints of right arm weakness. He was found to have an acute CVA and was admitted for further work-up and treatment. He was evaluated by Neurology and was started on ASA. His symptoms improved and he was discharged home on 06/13/17 in stable condition with outpatient follow-up. 1. Acute CVA: presented with right arm weakness for 2-3 days prior to admission. Not a TPA candidate due to symptom onset. ASA given on arrival. Head CT negative. Brain MRI with acute lacunar infarct within the high left frontal lobe. TTE with evidence of PFO. Bilateral carotid Dopplers normal. HOLLIE with no cardiac source of emboli identified, normal HERACLIO, no thrombus. HOLLIE showed aortic arch plaque that was not well defined by ultrasound. CTA chest with very mild atherosclerosis within the thoracic aorta. Evaluated by Neurology who recommended full dose ASA (no anticoagulation). Will need to follow up with Neurology 2-3 weeks after discharge 2. Noncoronary atherosclerotic disease: Chest CTA with mild thoracic atherosclerosis. Discussed with Dr Allen (Neurology), cont full dose ASA, no anticoagualtion at this time. Medical management with ASA, statin, BP and glycemic control. Outpatient follow-up with Cardiology 3. PFO: 06/11/2017 TTE with evidence of interatrial PFO. Discussed with neurology and will continue ASA for now. Patient can follow up outpatient to see if PFO closure is recommended. 4. Hypertension: per hx. BP controlled. Cont home BP medication. 5. Diabetes: per hx. Uncontrolled. Hgb A1c 8.3. Discussed [place] for tight glycemic control with patient. 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 Strongly encouraged lifestyle, dietary changes. Continue home metformin. Recommend follow-up with PCP in 1-2 weeks. 6. Hyperlipidemia: per hx. LDL 50, cont home statin 7. Thyroid goiter: Chest CTA with suspected thyroid goiter. TSH 3.5. Can follow -up with PCP (2) Essential hypertension Priority: Primary Status: Acute (3) DM2 (diabetes mellitus, type 2) Priority: Primary Status: Acute Qualifiers: Diabetes mellitus complication status: without complication Diabetes mellitus jail insulin use: without moth exterminator use Qualified Code(s): E11.9 - Type 2 diabetes mellitus without complications (4) HLD (hyperlipidemia) Priority: Primary Status: Acute Qualifiers: Hyperlipidemia type: pure hypercholesterolemia Qualified Code(s): E78.00 - Pure hypercholesterolemia, unspecified; E78.0 - Pure hypercholesterolemia - Discharge Medications Prescriptions: Aspirin Enteric Coated [Aspirin EC] 325 mg PO DAILY #30 tablet. Home Medications: Gabapentin [Neurontin] 600 mg PO HS 06/10/17 [History] Lisinopril [Zestril] 40 mg PO DAILY 06/10/17 [History] Metoprolol [Lopressor] 25 mg PO BID 06/10/17 [History] Pravastatin Sodium [Pravachol] 40 mg PO HS 06/10/17 [History] hydroCHLOROthiazide [Hydrochlorothiazide] 25 mg PO DAILY 06/10/17 [History] metFORMIN [Glucophage] 1,000 mg PO BIDWM 06/10/17 [History] Aspirin Enteric Coated [Aspirin EC] 325 mg PO DAILY #30 tablet. 06/13/17 [Rx] Allergies/Adverse Reactions: 3 Allergy/AdvReac Type Severity Reaction Status Date / Time Penicillins Allergy Swelling Verified 12/28/16 20:23 of Lip/Tongue/Throat Procedures/tests Complete & Pending: Procedures Performed prior 72 hours Category Date Time Status CT angio chest [CT] Routine Cat Scan 06/12/17 12:23 Draft Date of admission: 06/12/17 11:07 Primary care physician: Adelaide Fallon CNP Discharging clinician: Julia Donnelly Anticipated date of discharge: 06/13/17 - Patient Status Disposition: Home, Self-Care Condition: Good Functional capacity at discharge: independent ambulation Overall status at discharge: patient is progressing back to baseline - Discharge Instructions Instructions: Hypertension (DC), Diabetes Mellitus Type 2 in Adults (DC), Heart Healthy Diet (DC) Follow Up With: Adelaide Fallon CNP [Primary Care Provider] - Emy Allen MD [Partnered Physician] - (Appointment has been webrequested, you will recieve a call from our office with a follow up appointment. If you do not recieve a call within 3-5 days call us at, for an update. Thank You. ) Briseida Del Rosario DO [Partnered Physician] - - Diet and Activity Activity: resume usual activities as tolerated Diet: diabetic diet, low fat, low cholesterol Interval History: Seen and examined at bedside, patient says he feels much better and wants to go home. Right hand weakness still present but improving. Discussed with patient at length regarding overall health maintenance and importance of BP and blood sugar control, dietary compliance and weight loss. He verbalized understanding. He has no complaints at time of discharge besides right hand weakness Hospital course: See assessment and plan for hospital course - Time Spent with Patient Total time spent providing and/or coordinating discharge services: Greater than 30 minutes (44 minutes spent on discharge) - Constitutional Vitals: Temp Pulse Resp BP Pulse Ox 97.9 F 61 18 120/79 94 06/13/17 07:16 06/13/17 07:16 06/13/17 07:16 06/13/17 07:16 06/13/17 07:16 General appearance: Present: A&O X 3, no acute distress, answers questions appropriately - Head Head exam: Present: atraumatic, normocephalic - Eye Eye exam: Present: PERRL, conjuntiva pink, sclera anicteric Pupils: Present: PERRL - Neck Neck exam general surgery: Present: supple, trachea midline. Absent: lymphadenopathy - Respiratory Respiratory exam: Present: CTAB. Absent: accessory muscle use, rales, rhonchi, wheezes - Cardiovascular Cardiovascular exam: Present: RRR, +S1, +S2. Absent: diastolic murmur, gallop, rubs, systolic murmur - GI/Abdominal GI/Abdominal exam: Present: normal bowel sounds, soft, no peritoneal signs. Absent: distended, tenderness - Extremities Exam Extremities exam: Present: warm, radial pulses palpable and symmetrical. Absent : calf tenderness, cyanotic, pedal edema - Neurological Exam Neurological exam: Present: CN II-XII intact, oriented X3, no focal deficits. Absent: pronater drift, facial droop, speech deficit Additional comments: right hand weakness - Skin Skin exam: Present: dry, intact
[2017-06-13] MEDS ORDERED: Aspirin Enteric Coated 325 MG Tablet PO SCH (09:00)
[2017-06-13] MEDS ORDERED: FLUARIX QUAD 2017-18 36MOS UP/PF 0.5 ML SYRINGE IM ONE (10:25)
== END 2017-06-13 10:55 | disposition home or self-care (01) | DRG 65 ==
LOC: 3BNU 19:24 → EMEROO 19:24 → 3BNU 22:56
PROVIDERS: ADMIT Pediatrics; ATTEND Registered Nurse